=== PATIENT | male | born 1955 | race Caucasian/White ===

== ENCOUNTER 2017-08-04 10:20 | Emergency (ER) | payer SELFPAY ==
[~2017-08-04] VITALS: Ht 172.7 cm; Wt 82.4 kg
[2017-08-04 14:16] LABS: HEMATOCRIT 40.6 % (38.0-50.0); MCH 31.2 PG (29.0-34.0); MCV 89.2 FL (86-99); MEAN PLAT.VOLUME 11.5 uM^3 (9.0-12.4); PLATELET COUNT 109 K/uL (156-360); RBC DIS.WIDTH-CV 13.8 % (11.8-14.6); RBC DIS.WIDTH-SD 45.1 % (39-53); RED BLOOD COUNT 4.55 M/uL (4.00-5.50); WHITE BLOOD COUNT 5.2 K/uL (4.1-10.2)
[2017-08-04 14:25] LABS: CHLORIDE 98 mEq/L (99-109); POTASSIUM 3.2 mEq/L (3.7-5.4); SODIUM 138 mEq/L (136-147)
[2017-08-04 14:27] LABS: GLUCOSE 118 mg/dL (70-99)
[2017-08-04 14:28] LABS: ANION GAP 11 MEQ/L (2-14)
[2017-08-04 14:29] LABS: TOTAL BILIRUBIN 1.3 mg/dL (0.0-1.0)
[2017-08-04 14:30] LABS: ALKALINE PHOSPHATASE 77 IU/L (3-129)
[2017-08-04 14:31] LABS: GFR ESTIMATE (CALCULATED) > 59 mL/min/ (58.99-99999)
[2017-08-04 14:32] LABS: UREA NITROGEN (BUN) 12 mg/dL (9-23)
[2017-08-04] MEDS ORDERED: KEFLEX500 MG PO (14:58)
[2017-08-04 16:40] VITALS: BP 148/88
== END 2017-08-04 16:41 | disposition home or self-care (01) ==
LOC: EME 10:20
PROVIDERS: Physician Assistant
DX: L82.1 Other seborrheic keratosis (principal); H60.12 Cellulitis of left external ear; R11.2 Nausea with vomiting, unspecified; K82.4 Cholesterolosis of gallbladder; K74.60 Unspecified cirrhosis of liver; Z88.0 Allergy status to penicillin
CPT/HCPCS: 71020; 76705; 80053; 85027; 87070; 87075; 87077; 87147; 87186; 87205; 99281; 99283